=== PATIENT | male | born 1995 | race Caucasian/White ===

== ENCOUNTER 2024-03-12 20:00 | Emergency (ER) | payer BC ==
[2024-03-12] MEDS: Acetaminophen 325 MG Tab PO ONE (21:06)
[2024-03-12] MEDS: Diphtheria,Pertussis(Acell),Tetanus Vaccine 0.5 ML Syringe IM ONE (21:08)
== END 2024-03-12 22:10 | disposition home or self-care (01) ==
LOC: JD.ED 20:00
DX: S00.03XA Contusion of scalp, initial encounter (principal); S70.12XA Contusion of left thigh, initial encounter; S80.212A Abrasion, left knee, initial encounter; Z88.8 Allergy status to other drugs, medicaments and biological substances; Z23 Encounter for immunization; V86.56XA Driver of dirt bike or motor/cross bike injured in nontraffic accident, initial encounter; Y93.55 Activity, bike riding
CPT/HCPCS: 73502; 73552; 73562; 90471; 90715; 99284; A9270